=== PATIENT | female | born 1960 | race Caucasian/White ===

== ENCOUNTER 2020-03-01 09:59 | Emergency (ER) | payer OTHER ==
[~2020-03-01] VITALS: Ht 170.2 cm; Wt 56.7 kg
[~2020-03-01 09:59] MED LIST: CIPRO500 MG PO; DILANTIN100 MG PO; PROZAC10 MG PO; PYRIDIUM100 M1 PO; XANAX1 MG PO; ZOFRAN ODT4 MG PO
[2020-03-01] MEDS ORDERED: SINGULAIR 10 MG10 MG PO (10:15)
[2020-03-01 12:01] LABS: URINE BLOOD 3+ (Negative); URINE CLARITY CLOUDY; URINE COLOR DARK YELLOW; URINE GLUCOSE-RANDOM NEGATIVE (Negative); URINE KETONES NEGATIVE (Negative); URINE LEUKOCYTES-REFLEX TRACE (Negative); URINE PROTEIN 1+ (Negative); URINE SPECIFIC GRAVITY 1.025 (1.005-1.030)
[2020-03-01 12:02] LABS: URINE BILIRUBIN 1+ (Negative); URINE NITRITE-REFLEX POSITIVE (Negative)
[2020-03-01 12:03] LABS: ICTOTEST (BILI CONFIRMATORY) Positive (Negative)
[2020-03-01 12:08] LABS: BACTERIA-REFLEX >30 Many /HPF (None Seen); CASTS None Seen /LPF (None Seen); CRYSTALS None Seen /LPF (None Seen); MUCUS 4-6 Moderate strn/LPF (None Seen); SQUAMOUS 0-3 Few /LPF (0-3); URINE WBC-REFLEX 6-15 Few /HPF (0-5)
[2020-03-01] MEDS ORDERED: BACTRIM DS TAB1 EAC1 PO (12:13)
[2020-03-01 12:22] VITALS: BP 126/84
== END 2020-03-01 12:23 | disposition home or self-care (01) ==
LOC: M.ERS 09:59
PROVIDERS: Emergency Medicine Emergency Medical Services
DX: N39.0 Urinary tract infection, site not specified (principal); J44.9 Chronic obstructive pulmonary disease, unspecified; F41.9 Anxiety disorder, unspecified; Z20.828 Contact with and (suspected) exposure to other viral communicable diseases; Z88.6 Allergy status to analgesic agent

== ENCOUNTER 2021-01-24 16:51 | Emergency (ER) | payer OTHER ==
[~2021-01-24] VITALS: Ht 170.2 cm; Wt 56.7 kg
[~2021-01-24 16:51] MED LIST changes: +BACTRIM DS TAB1 EAC1 PO; +SINGULAIR 10 MG10 MG PO
[2021-01-24] MEDS ORDERED: CEPHALEXIN500 MG PO (17:28)
[2021-01-24] MEDS ORDERED: BACTRIM DS TAB1 EACH PO (17:28)
[2021-01-24] MEDS ORDERED: NORCO5 PO (17:29)
[2021-01-24 17:35] VITALS: BP 145/70
== END 2021-01-24 17:36 | disposition home or self-care (01) ==
LOC: M.ERS 16:51
DX: L03.115 Cellulitis of right lower limb (principal); J44.9 Chronic obstructive pulmonary disease, unspecified; G40.909 Epilepsy, unspecified, not intractable, without status epilepticus; Z88.5 Allergy status to narcotic agent; Z79.899 Other long term (current) drug therapy